=== PATIENT | female | born 1935 | race Caucasian/White ===

== ENCOUNTER → 2016-12-08 | Outpatient (CLI) | payer MEDICARE, OTHER ==
[~2016-12-08] MED LIST: AMLODIPINE BESY10 MG PO; ASPIR 8181 MG PO; ASPIR-LOW81 MG PO; CETIRIZINE HCL10 MG PO; CILOSTAZOL100 MG; CILOSTAZOL100 MG PO; COMBIVENT0.074 GM/I INH; DULERA 200 MCG8.8 GM INH; ELIQUIS2.5 MG PO; FEOSOL325 MG PO; FLEXERIL 10 MG10 MG PO; FUROSEMIDE20 MG PO; GLUCOSAMINE1000 MG PO; I-CAPS WITH LU1 EACH PO; IRON325 M1 PO; KLOR-CON M2020 MEQ PO; LIPITOR TAB 1010 MG PO; LIPITOR TAB 2020 MG PO; LOPRESSOR 50 MG50 MG PO; LUMIGAN 0.01%2.5 ML OP; LUMIGAN 0.01%2.5 ML OU; MEGA RED OMEGA PO; MEGACE 400400 MG/10 PO; MELOXICAM15 MG PO; MOBIC15 MG PO; NORCO 10-325 T1 EACH PO; PLAVIX 75 MG TA75 MG PO; PROAIR HFA8.5 GM INH; PROTONIX40 MG PO; SYMBICORT 160-1 INHA INH; TYLENOL 325MG325 MG PO; TYLENOL 500 MG500 MG PO; TYLENOL PM EX-1 EACH PO; VENTOLIN HFA 66.7 GM INH; XARELTO10 MG PO; ZANTAC150 MG PO; ZYRTEC10 MG PO; [UNRECOGNIZED DRUG - OTHER] PO
== END ==
LOC: US 13:07
DX: M54.2 Cervicalgia (principal); M79.89 Other specified soft tissue disorders; R06.9 Unspecified abnormalities of breathing
CPT/HCPCS: 76536; 93971

== ENCOUNTER → 2017-03-03 | Outpatient (CLI) | payer MEDICARE, OTHER ==
[~2017-03-03] MED LIST changes: -LUMIGAN 0.01%2.5 ML OP; -PROTONIX40 MG PO; -TYLENOL 325MG325 MG PO; -TYLENOL PM EX-1 EACH PO; -VENTOLIN HFA 66.7 GM INH
== END ==
LOC: RAD 13:32
DX: I10 Essential (primary) hypertension (principal)
CPT/HCPCS: 71020

== ENCOUNTER 2020-06-22 12:42 | Emergency (ER) | payer MEDICARE, OTHER ==
[~2020-06-22 12:42] MED LIST changes: -ASPIR 8181 MG PO; +FERROUS SULFAT325 M2 PO; +GABAPENTIN100 MG PO; +IPRAT-ALBUT 0.5-3 ML NEB; +LEVOFLOXACIN500 MG PO; +LUMIGAN 0.01%2.5 ML OP; +METRONIDAZOLE250 MG PO; +OMNICEF 300 MG300 MG PO; +PROTONIX40 MG PO; +TYLENOL 325MG325 MG PO; +TYLENOL PM EX-1 EACH PO; +VENTOLIN HFA 66.7 GM INH; +ZOFRAN ODT 4 MG4 MG PO
[2020-06-22 13:35] LABS: HEMOGLOBIN 9.8 gm/dl (12.3-15.3); RED BLOOD COUNT 4.07 M/UL (4.00-5.10); WHITE BLOOD COUNT 6.7 K/UL (4.5-11.0)
[2020-06-22 13:57] LABS: BUN/CREATININE RATIO 21 (0-10)
[2020-06-22] MEDS ORDERED: LEVOFLOXACIN750 MG PO (17:17)
== END 2020-06-22 17:42 | disposition home or self-care (01) ==
LOC: ER1 12:42
DX: J44.1 Chronic obstructive pulmonary disease with (acute) exacerbation (principal); J18.9 Pneumonia, unspecified organism; I10 Essential (primary) hypertension; F03.90 Unspecified dementia, unspecified severity, without behavioral disturbance, psychotic disturbance, mood disturbance, and anxiety; Z86.718 Personal history of other venous thrombosis and embolism; Z86.73 Personal history of transient ischemic attack (TIA), and cerebral infarction without residual deficits; Z79.01 Long term (current) use of anticoagulants; Z88.5 Allergy status to narcotic agent; Z88.2 Allergy status to sulfonamides; Z88.8 Allergy status to other drugs, medicaments and biological substances; Z20.822 Contact with and (suspected) exposure to COVID-19
CPT/HCPCS: 36600; 71045; 80053; 82550; 82553; 82803; 83874; 84484; 85025; 93005; 94664; 94760; 99285; U0002

== ENCOUNTER → 2020-07-04 | Outpatient (CLI) | payer MEDICARE, OTHER ==
[~2020-07-04] MED LIST changes: +ARICEPT5 MG PO; +ASPIRIN EC81 MG PO; +FUROSEMIDE40 MG PO; +GABAPENTIN600 MG PO; +IPRAT-ALBUT 0.5-3 ML INH; +LATANOPROST2.5 ML EYEBOTH; +LATANOPROST2.5 ML OP; +LEVOFLOXACIN750 MG PO; +NYSTATIN15 GM TOP; +PERFOROMIS20 MCG/2 M INH; +YUPELRI175 MCG/3 INH; +ZOLOFT50 MG PO; +ZYRTEC10 M3 PO
== END ==
LOC: RAD 13:03
DX: J18.9 Pneumonia, unspecified organism (principal); J84.9 Interstitial pulmonary disease, unspecified; J90 Pleural effusion, not elsewhere classified; R91.8 Other nonspecific abnormal finding of lung field
CPT/HCPCS: 71046

== ENCOUNTER 2020-12-25 20:10 | Emergency (ER) | payer MEDICARE, OTHER ==
[~2020-12-25 20:10] MED LIST changes: -ARICEPT5 MG PO; -ASPIRIN EC81 MG PO; -FUROSEMIDE40 MG PO; -GABAPENTIN600 MG PO; -IPRAT-ALBUT 0.5-3 ML INH; -LATANOPROST2.5 ML EYEBOTH; -LATANOPROST2.5 ML OP; -NYSTATIN15 GM TOP; -PERFOROMIS20 MCG/2 M INH; -YUPELRI175 MCG/3 INH; -ZOLOFT50 MG PO; -ZYRTEC10 M3 PO
[2020-12-25 20:59] LABS: HEMOGLOBIN 9.1 gm/dl (12.3-15.3); RED BLOOD COUNT 2.95 M/UL (4.00-5.10); WHITE BLOOD COUNT 7.2 K/UL (4.5-11.0)
[2020-12-26] MEDS ORDERED: LEVOFLOXACIN500 MG PO ×2 (00:15→09:15)
== END 2020-12-26 01:30 | disposition home or self-care (01) ==
LOC: ER1 20:10
PROVIDERS: Emergency Medicine
DX: R41.0 Disorientation, unspecified (principal); N39.0 Urinary tract infection, site not specified; Z20.822 Contact with and (suspected) exposure to COVID-19
CPT/HCPCS: 36600; 70450; 71045; 73090; 80053; 81001; 82550; 82553; 82803; 83605; 83735; 83874; 84100; 84439; 84443; 84484; 85025; 85610; 85730; 87040; 87086; 93005; 94664; 94760; 96374; 96375; 99285; J1956; J2930; U0002

== ENCOUNTER 2020-12-28 20:36 | Observation (INO) | payer MEDICARE, OTHER ==
[~2020-12-28] VITALS: Ht 157.5 cm; Wt 68.0 kg
[2020-12-28 21:54] LABS: HEMOGLOBIN 8.7 gm/dl (12.3-15.3); RED BLOOD COUNT 2.8 M/UL (4.00-5.10)
[2020-12-28 22:12] LABS: BUN/CREATININE RATIO 21 (0-10)
[2020-12-29] MEDS ORDERED: ZOLOFT50 MG PO (01:28)
[2020-12-29] MEDS ORDERED: PERFOROMIS20 MCG/2 M INH (02:19)
[2020-12-29] MEDS ORDERED: YUPELRI175 MCG/3 INH (02:19)
[2020-12-29] MEDS ORDERED: GABAPENTIN600 MG PO ×2 (02:21→09:17)
[2020-12-29] MEDS ORDERED: LATANOPROST2.5 ML OP (02:21)
[2020-12-29] MEDS ORDERED: ARICEPT5 MG PO (02:22)
[2020-12-29] MEDS ORDERED: ZYRTEC10 M3 PO (02:22)
[2020-12-29] MEDS ORDERED: IPRAT-ALBUT 0.5-3 ML INH (09:16)
[2020-12-29] MEDS ORDERED: LATANOPROST2.5 ML EYEBOTH (09:19)
[2020-12-29] MEDS ORDERED: NYSTATIN15 GM TOP (09:20)
[2020-12-29] MEDS ORDERED: FUROSEMIDE40 MG PO (09:21)
[2020-12-29] MEDS ORDERED: PROAIR HFA8.5 GM INH (09:22)
[2020-12-29] MEDS ORDERED: FERROUS SULFAT325 M2 PO (09:23)
[2020-12-29] MEDS ORDERED: ASPIRIN EC81 MG PO (12:31)
[2020-12-30 05:01] LABS: HEMOGLOBIN 8.1 gm/dl (12.3-15.3); RED BLOOD COUNT 2.7 M/UL (4.00-5.10); WHITE BLOOD COUNT 7.2 K/UL (4.5-11.0)
[2020-12-30 05:51] LABS: BUN/CREATININE RATIO 19 (0-10)
== END 2020-12-30 20:30 ==
LOC: ER1 20:36 → CDU 12-29 00:51 → PROG CARE 12-29 00:51
PROVIDERS: Emergency Medicine; Internal Medicine Infectious Disease; ADMIT Internal Medicine
DX: J44.1 Chronic obstructive pulmonary disease with (acute) exacerbation (principal); J20.9 Acute bronchitis, unspecified; J44.0 Chronic obstructive pulmonary disease with (acute) lower respiratory infection; J96.21 Acute and chronic respiratory failure with hypoxia; J96.22 Acute and chronic respiratory failure with hypercapnia; I11.0 Hypertensive heart disease with heart failure; I50.32 Chronic diastolic (congestive) heart failure; D50.9 Iron deficiency anemia, unspecified; I48.0 Paroxysmal atrial fibrillation; E87.6 Hypokalemia; I73.9 Peripheral vascular disease, unspecified; F17.210 Nicotine dependence, cigarettes, uncomplicated; M19.90 Unspecified osteoarthritis, unspecified site; H35.30 Unspecified macular degeneration; E87.0 Hyperosmolality and hypernatremia; E66.2 Morbid (severe) obesity with alveolar hypoventilation; Z68.27 Body mass index [BMI] 27.0-27.9, adult; Z20.822 Contact with and (suspected) exposure to COVID-19; Z89.611 Acquired absence of right leg above knee; Z95.5 Presence of coronary angioplasty implant and graft; Z98.890 Other specified postprocedural states; Z99.81 Dependence on supplemental oxygen; Z86.73 Personal history of transient ischemic attack (TIA), and cerebral infarction without residual deficits; Z86.718 Personal history of other venous thrombosis and embolism; Z79.01 Long term (current) use of anticoagulants; Z79.82 Long term (current) use of aspirin; Z79.899 Other long term (current) drug therapy; Z85.118 Personal history of other malignant neoplasm of bronchus and lung; Z96.643 Presence of artificial hip joint, bilateral; Z88.2 Allergy status to sulfonamides; Z88.5 Allergy status to narcotic agent
CPT/HCPCS: 36415; 36600; 71045; 80053; 82550; 82553; 82728; 82803; 83540; 83550; 83735; 83874; 83880; 84132; 84484; 85025; 86140; 93005; 93931; 94640; 94660; 94664; 94667; 94760; 96374; 96375; 99285; C9113; G0378; J1100; J1335; J1940; J2920; J7070; U0002